=== PATIENT | female | born 1970 | race African-American/Black ===

== ENCOUNTER 2021-12-04 23:13 | Emergency (ER) | payer SELFPAY ==
[~2021-12-04] VITALS: Ht 167.6 cm; Wt 127.0 kg
[2021-12-05] MEDS ORDERED: ZYRTEC10 M3 PO (01:25)
[2021-12-05] MEDS ORDERED: CLEOCIN HCL300 MG PO (01:25)
[2021-12-05] MEDS ORDERED: NAPHCON-A EYE D15 ML OU (01:25)
[2021-12-05] MEDS ORDERED: CLOTRIMAZOLE15 GM TOP (01:25)
== END 2021-12-05 01:33 | disposition home or self-care (01) ==
LOC: ER 12-05 00:03
DX: L03.319 Cellulitis of trunk, unspecified (principal); B35.4 Tinea corporis; H10.12 Acute atopic conjunctivitis, left eye; F41.9 Anxiety disorder, unspecified
CPT/HCPCS: 99282

== ENCOUNTER 2021-12-07 02:41 | Emergency (ER) | payer SELFPAY ==
[~2021-12-07] VITALS: Ht 167.6 cm; Wt 127.0 kg
[~2021-12-07 02:41] MED LIST: CLEOCIN HCL300 MG PO; CLOTRIMAZOLE15 GM TOP; NAPHCON-A EYE D15 ML OU; ZYRTEC10 M3 PO
[2021-12-07] MEDS ORDERED: ONDANSETRON HCL INJ 2MG/ML 2ML 2 MG/ML VIAL IV STA (02:52)
[2021-12-07] MEDS ORDERED: Morphine 4mg INJECTION 4 MG/ML INJ IV STA (02:52)
[2021-12-07] MEDS ORDERED: SODIUM CHLORIDE 0.9% 1000ML 1,000 ML IV STA (02:52)
[2021-12-07 03:18] LABS: BASOPHILS # (AUTO) 0.1 (0.0-0.1); BASOPHILS % 0.6 % (0.0-1.0); EOSINOPHILS # (AUTO) 0.1 (0.0-0.4); HEMATOCRIT 40.7 % (34.2-44.1); HEMOGLOBIN 13.9 g/dL (12.0-16.0); LYMPHOCYTES # (AUTO) 2.7 (1.0-3.2); MEAN CORPUSCULAR HEMOGLOBIN 32.6 pg (28-32); MEAN CORPUSCULAR HGB CONC 34.2 g/dL (31-35); MEAN CORPUSCULAR VOLUME 95.5 fL (81-99); MONOCYTES # (AUTO) 0.8 (0.2-0.8); MONOCYTES % 9.6 % (4.4-11.3); NEUTROPHILS % 57.7 % (38.7-80.0); PLATELET COUNT 282 x10e3/uL (140-360); RED BLOOD COUNT 4.26 x10e6/uL (3.6-5.1); RED CELL DISTRIBUTION WIDTH 11.9 % (11.7-14.4)
[2021-12-07 03:22] LABS: AMPHETAMINES SCREEN,URINE NEGATIVE (NEGATIVE); BENZODIAZEPINES SCREEN,URINE NEGATIVE (NEGATIVE); PHENCYCLIDINE SCREEN,URINE NEGATIVE (NEGATIVE)
[2021-12-07 03:23] LABS: BACTERIA,URINE FEW /HPF; CLARITY,URINE CLEAR (CLEAR); COLOR,URINE COLORLESS (YELLOW); EPITHELIAL CELLS,URINE FEW /LPF; KETONES,URINE NEGATIVE (NEGATIVE); LEUKOCYTE ESTERASE ,URINE NEGATIVE (NEGATIVE); NITRITE,URINE NEGATIVE (NEGATIVE); PROTEIN,URINE DIPSTICK NEGATIVE (NEGATIVE); RBC,URINE 0-5 /HPF (0-5); URINE UROBILINOGEN 0.2 mg/dL (0.2 - 1); WBC,URINE (MAN) 0-5 /HPF (0-5)
[2021-12-07 03:32] LABS: ALBUMIN/GLOBULIN RATIO 1.1 (0.8-2.0); CALCIUM 9.6 mg/dL (8.4-10.2); CREATININE, SERUM 0.83 mg/dL (0.57-1.11)
[2021-12-07] MEDS ORDERED: POTASSIUM CHLORIDE 20 MEQ TAB CR PO STA (04:00)
[2021-12-07] MEDS ORDERED: METRONIDAZOLE500 MG PO (04:39)
[2021-12-07] MEDS ORDERED: CIPRO500 MG PO (04:39)
[2021-12-07] MEDS ORDERED: ONDANSETRON ODT4 MG PO (04:39)
[2021-12-07] MEDS ORDERED: ACETAMINOPHEN-1 EAC4 PO (04:39)
[2021-12-07] MEDS ORDERED: IOPAMIDOL 370 MG/ML 100 ML INFUS..BTL INJ ONE (04:43)
[2021-12-07 05:03] VITALS: BP 115/87
== END 2021-12-07 05:06 | disposition home or self-care (01) ==
LOC: ER 02:47
DX: R10.31 Right lower quadrant pain (principal); K52.9 Noninfective gastroenteritis and colitis, unspecified; R30.0 Dysuria; R11.0 Nausea
CPT/HCPCS: 36415; 74177; 80053; 80307; 81001; 81025; 83690; 85025; 99284; J2270; J2405; J7030; Q9967